=== PATIENT | male | born 1965 | race Caucasian/White ===

== ENCOUNTER 2017-05-18 10:56 | Inpatient (IN) | payer OTHER ==
[2017-05-18] VITALS (706 sets, daily range): BP systolic 112–199; BP diastolic 68–128; PULSE 52–111; TEMP 97–98.7; O2SAT 88–100
[~2017-05-18] VITALS: Ht 180.3 cm; Wt 92.7 kg
[2017-05-18] MEDS ORDERED: ALDACTONE 25MG25 M1 PO (12:19)
[2017-05-18] MEDS ORDERED: NORVASC 5MG5 MG/TAB PO (12:20)
[2017-05-18 14:25] LABS: BASO # 0.1 (0.0-0.2); BASO % 0.7 % (0.0-2.0); EOS # 0.2 (0.0-0.7); EOS % 1.7 % (0-4.0); GRAN # 7.7 (1.4-6.5); GRAN % 70.2 % (42.2-75.2); HEMATOCRIT 42.1 % (42.0-52.0); HEMOGLOBIN 14.7 g/dl (13.5-18.0); LYMPH # 2.3 (1.2-3.4); LYMPH % 20.6 % (20.0-51.0); MEAN CELL VOLUME 86 fl (80.0-100.0); MEAN CORPUSCULAR HEMOGLOBIN 30 pg (27.0-31.0); MEAN CORPUSCULAR HGB CONC 35 g/dl (33.0-37.0); MEAN PLATELET VOLUME 9.4 fl (7.4-10.4); MONO # 0.7 (0.1-0.6); MONO % 6.1 % (1.7-9.3); PLATELET COUNT 342 K/mm3 (130-400); RED BLOOD COUNT 4.87 M/mm3 (4.20-5.60); REDCELL DISTRIBUTION WIDTH-CV 13.1 % (11.5-14.5); WHITE BLOOD COUNT 10.9 K/mm3 (4.8-10.8)
[2017-05-18 14:41] LABS: ADJUSTED CALCIUM 9.3 mg/dL (8.4-10.2); ALBUMIN 3.8 gm/dL (3.5-5.0); BILIRUBIN,TOTAL 0.9 mg/dL (0.0-1.0); CALCIUM 9.1 mg/dL (8.4-10.2); CREATININE, serum 1.02 mg/dL (0.66-1.25); POTASSIUM 3.7 mmol/L (3.4-5.0); TOTAL PROTEIN 7.3 gm/dL (6.4-8.2)
[2017-05-18 14:52] LABS: TROPONIN-I 0.034 ng/mL (0.000-0.034)
[2017-05-18 17:27] LABS: PH 7 (5-8); SQUAMOUS EPITHELIAL None Seen /hpf; URINE APPEARANCE Clear; URINE BACTERIA Rare /hpf; URINE BILIRUBIN Negative (NEGATIVE); URINE BLOOD Negative (NEGATIVE); URINE COLOR Yellow; URINE GLUCOSE 2+ (NEGATIVE); URINE KETONE Negative (NEGATIVE); URINE RBC 0-2 /hpf; URINE UROBILINOGEN Negative (NEGATIVE); URINE WBC 0-2 /hpf
[2017-05-19] VITALS (622 sets, daily range): BP systolic 134–205; BP diastolic 70–172; PULSE 53–77; TEMP 97–98; O2SAT 86–99
[2017-05-19 05:35] LABS: BASO # 0.1 (0.0-0.2); BASO % 0.7 % (0.0-2.0); EOS # 0.2 (0.0-0.7); EOS % 2.3 % (0-4.0); GRAN # 7.7 (1.4-6.5); GRAN % 73.9 % (42.2-75.2); HEMOGLOBIN 14.6 g/dl (13.5-18.0); LYMPH # 1.8 (1.2-3.4); LYMPH % 17.1 % (20.0-51.0); MEAN CELL VOLUME 86 fl (80.0-100.0); MEAN CORPUSCULAR HEMOGLOBIN 30 pg (27.0-31.0); MEAN CORPUSCULAR HGB CONC 35 g/dl (33.0-37.0); MONO # 0.6 (0.1-0.6); MONO % 5.4 % (1.7-9.3); PLATELET COUNT 369 K/mm3 (130-400); RED BLOOD COUNT 4.86 M/mm3 (4.20-5.60); REDCELL DISTRIBUTION WIDTH-CV 13.2 % (11.5-14.5); WHITE BLOOD COUNT 10.4 K/mm3 (4.8-10.8)
[2017-05-19 05:46] LABS: ALBUMIN 3.7 gm/dL (3.5-5.0); BILIRUBIN,TOTAL 0.5 mg/dL (0.0-1.0); CALCIUM 8.8 mg/dL (8.4-10.2); CREATININE, serum 1.01 mg/dL (0.66-1.25); POTASSIUM 3.9 mmol/L (3.4-5.0); TOTAL PROTEIN 7.2 gm/dL (6.4-8.2)
[2017-05-20] VITALS (794 sets, daily range): BP systolic 126–185; BP diastolic 75–122; PULSE 52–85; TEMP 97.1–98.4; O2SAT 74–100
[2017-05-20 12:25] LABS: CALCIUM 9.4 mg/dL (8.4-10.2); POTASSIUM 3.1 mmol/L (3.4-5.0)
[2017-05-21] VITALS (971 sets, daily range): BP systolic 135–171; BP diastolic 95–115; PULSE 55–80; TEMP 97.1–98.1; O2SAT 83–100
[2017-05-21 10:59] LABS: CALCIUM 9.3 mg/dL (8.4-10.2); CREATININE, serum 0.96 mg/dL (0.66-1.25)
[2017-05-21 13:24] LABS: INR 0.9 (0.8-3.0); PROTHROMBIN TIME 10.4 SECONDS (9.7-12.8)
[2017-05-21 13:59] LABS: CATECHOLAMINES-HRS COLLECTED 24 (())
[2017-05-22] VITALS (537 sets, daily range): BP systolic 111–186; BP diastolic 72–116; PULSE 51–61; TEMP 97.8–98.3; O2SAT 89–100
[2017-05-22 06:01] LABS: CALCIUM 9.8 mg/dL (8.4-10.2); CREATININE, serum 1.29 mg/dL (0.66-1.25)
[2017-05-22 06:08] LABS: POTASSIUM 2.9 mmol/L (3.4-5.0)
[2017-05-22 06:24] LABS: INR 0.9 (0.8-3.0); PROTHROMBIN TIME 10.3 SECONDS (9.7-12.8)
[2017-05-22 10:54] LABS: .METANEPHRINE 0.21 nmol/L (<0.50); .NORMETANEPH 0.54 nmol/L (<0.90)
[2017-05-23 03:24] VITALS: BP 117/78; PULSE 51; TEMP 98.4
[2017-05-23 07:38] LABS: CALCIUM 9.9 mg/dL (8.4-10.2); CREATININE, serum 1.16 mg/dL (0.66-1.25); POTASSIUM 3.4 mmol/L (3.4-5.0)
[2017-05-23 08:26] VITALS: BP 143/82; PULSE 54; TEMP 97.9
[2017-05-23] MEDS ORDERED: PLAVIX 75MG TAB75 MG PO (11:23)
[2017-05-23] MEDS ORDERED: ASPIRIN 32325 MG/TAB PO (11:24)
[2017-05-23] MEDS ORDERED: COREG12.5 MG PO (11:24)
[2017-05-23] MEDS ORDERED: LIPITOR20 MG PO (11:30)
[2017-05-23 11:31] LABS: DOPAMINE 307 mcg/24 h (65-400); EPINEPHRINE 11 mcg/24 h (<21); NOREPINEPHRINE 85 mcg/24 h (15-80)
[2017-05-23 11:41] VITALS: BP 147/79; PULSE 52; TEMP 98.1
[2017-05-23 14:03] LABS: URINE VOLUME VMA 2820 mL (())
[2017-05-23 16:32] VITALS: BP 128/78; PULSE 48; TEMP 97.8
[2017-05-23 20:23] VITALS: BP 129/92; PULSE 51; TEMP 98.2
[2017-05-23 22:39] VITALS: BP 140/95; PULSE 54; TEMP 98.3
[2017-05-24 03:49] VITALS: BP 138/99; PULSE 55
[2017-05-24 06:17] LABS: CALCIUM 9.6 mg/dL (8.4-10.2); CREATININE, serum 1.03 mg/dL (0.66-1.25); POTASSIUM 3.8 mmol/L (3.4-5.0)
[2017-05-24 07:29] VITALS: BP 152/98; PULSE 57; TEMP 97.6
[2017-05-24] MEDS ORDERED: ASPIRIN E.C. 8181 MG PO (11:25)
[2017-05-24 11:26] VITALS: BP 187/93; PULSE 53; TEMP 97.3
== END 2017-05-24 12:23 | disposition home or self-care (01) | DRG 252 ==
LOC: ICU 10:56 → MEDICAL 05-22 17:00 → ICU 05-22 17:00 → MEDICAL 05-24 12:23
PROVIDERS: Family Medicine; Internal Medicine; Internal Medicine Cardiovascular Disease; Radiology Diagnostic Radiology
PROC: 047A3DZ Dilation of Left Renal Artery with Intraluminal Device, Percutaneous Approach (ICD-10-PCS; principal; 2017-05-22)
PROC: B4081ZZ Plain Radiography of Bilateral Renal Arteries using Low Osmolar Contrast (ICD-10-PCS; 2017-05-22)
DX: I16.1 Hypertensive emergency (principal); I63.8 Other cerebral infarction; E87.1 Hypo-osmolality and hyponatremia; I70.1 Atherosclerosis of renal artery; I10 Essential (primary) hypertension; E87.6 Hypokalemia; Z87.891 Personal history of nicotine dependence; I35.0 Nonrheumatic aortic (valve) stenosis; R47.81 Slurred speech; G83.21 Monoplegia of upper limb affecting right dominant side; R00.1 Bradycardia, unspecified
CPT/HCPCS: 99223-AI; 99233-AI; 99239; A9585; C1760; C1769; C1876; C1894; C8902; J1644; J1650; J2250; J2270; J2405; J3010; J3480; J7040; J7060